=== PATIENT | male | born 1960 | race Caucasian/White ===

== ENCOUNTER 2020-08-18 01:39 | Emergency (ER) | payer MEDICARE, SELFPAY ==
--- NOTE | ~2020-08-18 | CT_ITS ---
EXAMINATION: CT abdomen pelvis w con INDICATION: Abdominal pain TECHNIQUE: Computed tomographic images of the abdomen and pelvis were obtained after the administrati on of 100 cc of Omnipaque 350 intravenous contrast. The dose-length product (DLP) was 1104.70 mGy-cm. Automated exposure control and iterative reconstruction technique were employed. COMPARISON: None available FINDINGS: Minimal dependent atelectasis mild emphysema are present in the visualized lung bases. Ther e is minimal groundglass opacity in the superior segment of the left lower lobe. The heart size is no rmal. There is a moderate-sized sliding hiatal hernia. The gallbladder is mildly distended. There is mild inflammation near the neck and cystic duct. There appears to be a stone in the gallbladder neck. Mild intrahepatic biliary dilatation is noted. The liver, spleen, pancreas, and adrenal glands are n ormal. The left kidney is unremarkable. There is a 6 mm cyst of the right kidney. No pathologically e nlarged abdominal or pelvic lymph nodes are identified. There is calcified atherosclerosis of the aor ta and many of the other arteries. The appendix is normal. There is no free intraperitoneal gas or ev idence of bowel obstruction. Colonic diverticulosis is present without evidence of diverticulitis. Th ere is mild lumbar spondylosis. IMPRESSION: 1. Mild gallbladder distention with likely stone of the gallbladder neck and inflammatory change near the gallbladder neck and cystic duct. Findings could reflect early cholecystitis. Consider further e valuation with right upper quadrant ultrasound and/or nuclear hepatobiliary scan. 2. Mild intrahepatic biliary dilatation of unclear significance. 3. Subtle groundglass opacity in the superior segment of the left lower lobe, likely infectious or in flammatory. 4. Diverticulosis without evidence of diverticulitis. These findings and recommendations were communicated to the Emergency Department at 0316 hours on 07/24 by the [facility] Radiologist. Reviewed, dictated and finalized at location A. IMPRESSION: 1. Mild gallbladder distention with likely stone of the gallbladder neck and in flammatory change near the gallbladder neck and cystic duct. Findings could ref lect early cholecystitis. Consider further evaluation with right upper quadrant ultrasound and/or nuclear hepatobiliary scan. 2. Mild intrahepatic biliary dilatation of unclear significance. 3. Subtle groundglass opacity in the superior segment of the left lower lobe, l ikely infectious or inflammatory. 4. Diverticulosis without evidence of diverticulitis. These findings and recommendations were communicated to the Emergency Departmen t at 0316 hours on 08/18/2020 by the [employer] Radiologist.
[2020-08-18 01:36] VITALS: BP 184/108; PULSE 87; RESP 22; TEMP 36.8; O2SAT 100
--- NOTE | 2020-08-18 01:43 | ED.ABDPAIN ---
HPI - Abdominal Pain General Chief Complaint: Abdominal Pain Stated Complaint: N/V Abd pain Time Seen by Provider: 08/18/20 01:42 Source: patient Mode of arrival: EMS Limitations: no limitations History of Present Illness HPI narrative: Patient is a 59-year-old male complaining of epigastric pain, 9 out of 10, nonradiating, accompanied by nausea and vomiting start approximately 2 hours prior to arrival. Patient denies any chest pain, shortness of breath, diarrhea, fever or chills. Patient denies any urinary symptoms. Related Data Allergies Allergy/AdvReac Type Severity Reaction Status Date / Time morphine AdvReac Vomiting Verified 08/18/20 01:43 Review of Systems Review of Systems: All systems reviewed & are unremarkable except as noted in HPI and below Constitutional: Constitutional: Denies body ache(s), Denies chills, Denies excessive sweating, Denies fatigue, Denies fever(s), Denies headache(s), Denies lethargy, Denies malaise, Denies weakness and Denies weight loss Eyes: Eyes: Denies blurry vision, Denies change in vision and Denies loss of vision ENT: Denies dizziness, Denies ear discharge, Denies headache(s), Denies lip swelling, Denies epistaxis, Denies nasal congestion, Denies neck pain, Denies throat swelling and Denies tongue swelling Cardiovascular: Cardiovascular: Denies chest pain, Denies chest pain at rest, Denies chest pain with activity, Denies diaphoresis, Denies rapid heart rate, Denies edema, Denies irregular heart rhythm, Denies lightheadedness, Denies palpitations, Denies dyspnea and Denies dyspnea on exertion Respiratory: Respiratory: Denies chest congestion, Denies cough, Denies hemoptysis, Denies dyspnea and Denies dyspnea on exertion Gastrointestinal: Gastrointestinal: Denies melena, Denies hematochezia, Denies diarrhea and Denies hematemesis Musculoskeletal: Musculoskeletal: Denies abnormal gait, Denies deformity, Denies joint swelling, Denies limited range of motion, Denies neck pain and Denies numbness Neurologic: Denies Abnormal speech present, Denies abnormal gait, Denies confusion, Denies dizziness, Denies headache(s), Denies focal weakness, Denies loss of vision, Denies numbness, Denies Other visual disturbances, Denies Sensory deficit (Neuro) and Denies weakness Psychiatric: Psychiatric: Denies confusion, Denies depression, Denies auditory hallucinations, Denies homicidal ideation and Denies suicidal ideation Endocrine: Endocrine: Denies cold intolerance, Denies excessive sweating, Denies fatigue, Denies heat intolerance and Denies palpitations Hematologic/Lymphatic: Hematologic/Lymphatic: Denies easy bleeding and Denies easy bruising Allergic/Immunologic: Allergic/Immunologic: Denies lip swelling, Denies throat swelling and Denies tongue swelling PMFSH Comments Past medical history: None Family history: Noncontributory Social history: Non-smoker, occasional EtOH use, no drug use Exam Const: General: cooperative, healthy appearing, comfortable, no acute distress, well developed, alert and awake; No confusion Orientation/consciousness: oriented to person, oriented to place, oriented to time, patient oriented x3 and No confusion Limitations: no limitations HENMT: Head: normal to inspection, normocephalic and atraumatic Ears: hearing grossly normal bilaterally, TM normal on the right and TM normal on the left General nose exam: Normal external nose present, Normal nares present and No nasal discharge present Face and sinus: normal facial exam Mouth: Yes Normal oral and palatal mucosa present, Yes lip normal, Yes tongue normal and Yes oropharynx normal Throat: posterior oropharynx normal, tonsils normal and uvula midline Eyes: General: appearance normal, both eyes and all related structures Pupils: Equal, round and reactive pupils present EOM: EOMs intact bilaterally Neck: Neck: normal visual inspection, full ROM, no lymphadenopathy and no meningeal signs Chest: Chest palpation & inspection
--- NOTE | 2020-08-18 01:46 | ECG_ITS ---
Measurements Intervals [place] Rate: 65 P: 69 MI: 182 QRS: -3 QRSD: 100 T: 33 QT: 395 QTc: 413 Interpretive Statements SINUS RHYTHM WITH MARKED SINUS ARRHYTHMIA INCOMPLETE RIGHT BUNDLE BRANCH BLOCK BASELINE ARTIFACT- II, III BORDERLINE ECG Electronically Signed On 08-18-2020 5:50:34 CDT by Carlos Lynne D.O.
[2020-08-18] MEDS: PROMETHAZINE HCL 25 MG/ML AMPUL 12.5 MG IV PUSH (01:51)
[2020-08-18] MEDS: HYDROmorphone HCL INJ (*CRX) 1 MG/ML SYR IV PUSH (01:51)
[2020-08-18] MEDS: SODIUM CHLORIDE 0.9% IV 1,000 ML 999 ML IV CONT (01:55)
--- NOTE | 2020-08-18 02:06 | PC.NURSE ---
attempted to obtain urine, pt refuses at this time. Attempted to complete EKG, pt will not remain still to complete task. Will attempt again soon. ERP aware.
[2020-08-18 02:09] LABS: Basophils Percent Auto 0.4 % (0.2-1.2); Eosinophils Percent Auto 0.2 % (0-4.4); Hematocrit 45.2 % (42.0-52.0); Hemoglobin 15.4 g/dL (14.0-18.0); Immature Granulocyte Absolute 0.05 K/mm3 (0.00-0.031); Immature Granulocyte Percent A 0.5 % (0-0.5); Lymphocytes Absolute Auto 1.32 K/mm3 (0.9-3.2); Mean Corpuscular HGB Conc 34.1 g/dl (32-36); Mean Corpuscular Hemoglobin 29.8 pg (26-34); Mean Corpuscular Volume 87.6 fl (80-100); Mean Platelet Volume 9.9 fl (7.4-10.4); Monocytes Absolute Auto 0.5 K/mm3 (0.1-0.6); Monocytes Percent Auto 4.9 % (2.6-8.5); Neutrophils Absolute Auto 9.1 K/mm3 (1.3-6.7); Platelet Count Result 223 k/mm3 (150-375); Red Blood Count 5.16 M/mm3 (4.6-6.20); Red Cell Distribution Width 13.2 % (11.5-14.5)
[2020-08-18 02:19] LABS: Alanine Aminotransferase 16 U/L (4-50); Albumin Level 4.2 g/dL (3.5-5.1); Alkaline Phosphatase 68 U/L (38-126); Anion Gap 7 mmol/L (8-16); Aspartate Amino Transferase 18 U/L (17-59); Bilirubin,Total 0.4 mg/dL (0.2-1.3); Blood Urea Nitrogen 23 mg/dL (9-20); Calcium 9.5 mg/dL (8.4-10.2); Carbon Dioxide 29 mmol/L (22-30); Chloride 106 mmol/L (98-107); Estimated CRCL calculation 55 ml/min; Estimated Glomerular Filt Rate 52; Glucose 129 mg/dL (75-110); Lipase 54 U/L (23-300); Potassium 3.4 mmol/L (3.4-5.0); Sodium 142 mmol/L (137-145)
[2020-08-18 02:31] LABS: Troponin I < 0.012 ng/mL (0.000-0.034)
--- NOTE | 2020-08-18 02:32 | PC.NURSE ---
attempted to collect urine. pt refused. will attempt again soon.
--- NOTE | 2020-08-18 02:33 | PC.NURSE ---
Pt to CT
[2020-08-18 03:24] VITALS: BP 191/101; PULSE 97; RESP 22; O2SAT 96
[2020-08-18 03:31] LABS: Add Urine Microscopic? YES; Appearance Urine Cloudy (Clear); Bilirubin Urine Negative (Negative); Blood Urine Negative (Negative); Color Urine Yellow (Yellow); Glucose Urine UA Negative (Negative); Ketones Urine Trace mg/dL (Negative); Leukocyte Esterase Ur Negative LEU/UL (Negative); Mucus Urine Rare /lpf; Nitrate Urine Negative (Negative); Protein Urine 1+ mg/dL (Negative); RBC Urine 0-2 /hpf (0-2); Specific Grav Ur 1.028 (1.001-1.035); WBC Urine 0-3 /hpf
[2020-08-18] MEDS: KETOROLAC 30 MG/ML VIAL (*BKC) IV PUSH (03:45)
[2020-08-18] MEDS: HYDROcodone/acetaminophen (*CRX) 5-325 MG TABLET 1 TAB PO (03:45)
[2020-08-18] MEDS: ONDANSETRON INJ 4 MG/2 ML VIAL IV PUSH (03:45)
== END 2020-08-18 03:46 | disposition home or self-care (01) ==
PROVIDERS: Emergency Provider Emergency Medicine
DX: K80.70 Calculus of gallbladder and bile duct without cholecystitis without obstruction (principal); I45.10 Unspecified right bundle-branch block; K57.90 Diverticulosis of intestine, part unspecified, without perforation or abscess without bleeding
CPT/HCPCS: 36415; 74177; 80053; 81001; 83690; 84484; 85025; 93005; 96361; 96374; 96375; 99284; A9270; J1170; J1885; J2405; J2550; J7030; Q9967